=== PATIENT | female | born 1985 | race African-American/Black ===

== ENCOUNTER 2016-07-28 15:04 | Emergency (ER) | payer OTHER, SELFPAY ==
--- NOTE | 2016-07-28 20:25 | RAD ---
RIGHT SHOULDER THREE VIEWS 07/28/16 No fracture, dislocation, or AC joint widening was seen. All bones appear normal as did the soft tis sues. The visible adjacent ribs appear normal. The visible portions of the right lung are clear. IMPRESSION: No significant finding. POS: HOME
== END 2016-07-28 15:57 | disposition home or self-care (01) ==
LOC: BURERS 15:04
DX: S43.401A Unspecified sprain of right shoulder joint, initial encounter (principal); F17.210 Nicotine dependence, cigarettes, uncomplicated; X58.XXXA Exposure to other specified factors, initial encounter
CPT/HCPCS: 99283

== ENCOUNTER 2017-03-14 07:51 | Emergency (ER) | payer OTHER, SELFPAY ==
[2017-03-14] MEDS ORDERED: AMOXicillin 250 MG CAP ONE (08:08)
== END 2017-03-14 08:10 | disposition home or self-care (01) ==
LOC: BURERS 07:51
DX: K08.89 Other specified disorders of teeth and supporting structures (principal); F17.210 Nicotine dependence, cigarettes, uncomplicated
CPT/HCPCS: 99282

== ENCOUNTER 2017-04-09 09:20 | Emergency (ER) | payer OTHER, SELFPAY ==
[2017-04-09] MEDS ORDERED: predniSONE 20 MG TAB ONE (09:58)
== END 2017-04-09 10:19 | disposition home or self-care (01) ==
LOC: BURERS 09:20
DX: J06.9 Acute upper respiratory infection, unspecified (principal)
CPT/HCPCS: 99283; J7506

== ENCOUNTER 2018-03-21 07:00 | Emergency (ER) | payer OTHER, SELFPAY ==
[2018-03-21] MEDS ORDERED: Benzonatate 100 MG CAP ONE (07:50)
== END 2018-03-21 07:57 | disposition home or self-care (01) ==
LOC: BURERS 07:00
DX: J02.9 Acute pharyngitis, unspecified (principal)
CPT/HCPCS: 87081; 87430; 87804; 99283